=== PATIENT | female | born 1980 | race African-American/Black ===

== ENCOUNTER 2018-02-20 20:19 | Emergency (ER) | payer MEDICAID ==
[2018-02-20 21:13] LABS: BASOPHILS 0.3 % (0-2); EOSINOPHILS 1.2 % (0-7); HEMATOCRIT 38.3 % (36.0-48.0); HEMOGLOBIN 12.8 g/dL (12-16); IMMATURE GRANULOCYTES 0.3 % (0-5); LYMPHOCYTES 28.9 % (15-50); MCH 29.8 pg (26.0-34.0); MCHC 33.4 g/dL (31.0-37.0); MCV 89.1 fL (80.0-100.0); MEAN PLATELET VOLUME 9.8 fL (7.4-10.4); MONOCYTES 7.9 % (2-11); NEUTROPHILS 61.4 % (40-80); RDW 13.2 % (11.5-14.5); WBC 6.7 10x3/uL (4.8-10.8)
[2018-02-20 21:18] LABS: PLATELET COUNT 202 10x3/uL (130-400)
[2018-02-20 21:32] LABS: APPEARANCE CLEAR (CLEAR); BILIRUBIN NEGATIVE (NEGATIVE); COLOR YELLOW (YELLOW); GLUCOSE NEGATIVE (NEGATIVE); KETONE NEGATIVE (NEGATIVE); NITRITE NEGATIVE (NEGATIVE); PROTEIN NEGATIVE (NEGATIVE); UROBILINOGEN NORMAL (NORMAL)
[2018-02-20 21:36] LABS: HCG SERUM NEGATIVE (NEGATIVE)
[2018-02-23 22:12] LABS: CHLAMYDIA TRACHOMATIS, NAA Negative (Negative)
== END 2018-02-20 22:29 | disposition home or self-care (01) ==
LOC: D.ER 20:19
PROVIDERS: Family Medicine; Nurse Practitioner Family
DX: R10.9 Unspecified abdominal pain (principal); I10 Essential (primary) hypertension

== ENCOUNTER 2018-04-16 14:39 | Emergency (ER) | payer MEDICAID ==
[~2018-04-16] VITALS: Ht 172.7 cm; Wt 57.1 kg
[2018-04-16 15:08] VITALS: Ht 172.7 cm; Wt 57.1 kg
[2018-04-16] MEDS ORDERED: TORADOL10 MG PO (16:40)
[2018-04-16 17:13] VITALS: BP 143/101
== END 2018-04-16 17:08 | disposition home or self-care (01) ==
LOC: D.ER 14:39
DX: R07.89 Other chest pain (principal); I10 Essential (primary) hypertension

== ENCOUNTER 2018-08-10 10:07 | Emergency (ER) | payer MEDICAID ==
[~2018-08-10] VITALS: Ht 172.7 cm; Wt 59.1 kg
[~2018-08-10 10:07] MED LIST: TORADOL10 MG PO
[2018-08-10 10:10] VITALS: Ht 172.7 cm; Wt 59.1 kg
[2018-08-10] MEDS ORDERED: TORADOL10 MG PO (11:29)
[2018-08-10 11:48] VITALS: BP 145/092
== END 2018-08-10 11:49 | disposition home or self-care (01) ==
LOC: D.ER 10:07
DX: M25.512 Pain in left shoulder (principal); W10.9XXA Fall (on) (from) unspecified stairs and steps, initial encounter; Y93.89 Activity, other specified; Y92.89 Other specified places as the place of occurrence of the external cause; I10 Essential (primary) hypertension; F17.200 Nicotine dependence, unspecified, uncomplicated

== ENCOUNTER 2021-03-26 22:22 | Emergency (ER) | payer SELFPAY ==
[~2021-03-26] VITALS: Ht 172.7 cm; Wt 62.3 kg
[2021-03-26 22:55] VITALS: BP 158/101; Ht 172.7 cm; Wt 62.3 kg
[2021-03-27] MEDS ORDERED: VOLTAREN75 MG PO (00:40)
== END 2021-03-27 01:10 | disposition home or self-care (01) ==
LOC: D.ER 22:22
DX: S63.614A Unspecified sprain of right ring finger, initial encounter (principal); X58.XXXA Exposure to other specified factors, initial encounter; I10 Essential (primary) hypertension